=== PATIENT | male | born 1970 | race Caucasian/White ===

== ENCOUNTER 2022-03-31 22:09 | Inpatient (IN) | payer SELFPAY ==
[~2022-03-31] VITALS: Ht 170.2 cm; Wt 75.4 kg
--- NOTE | 2022-03-31 22:10 | NUR ---
Arrival 51 y/o white male ambulatory to ED accompanied by his mother c/o n/v x1 day with poor PO intake x 4 days pmhx DM takes metformin 500 mg BID , blood glucose 312 mg/dl, iv 18 memo started in left AC x 1 attempt, blood drawn for lab, Dr. Boyce at bedside orders recieved.
[2022-03-31] MEDS ORDERED: PHENERGAN IV STA (22:16)
[2022-03-31] MEDS ORDERED: NS 1000ML 1,000 ML STA ×2 (22:16→23:09)
[2022-03-31] MEDS ORDERED: NS 1000ML 1,000 ML ONE ×2 (22:35→23:09)
[2022-03-31] MEDS ORDERED: PHENERGAN ONE (22:36)
[2022-03-31] MEDS ORDERED: NS 25ML 25 ML IV ONE (22:36)
[2022-03-31 22:49] VITALS: BP 158/90
[2022-03-31 22:49] LABS: BASOPHIL % 0.1 % (0.0-0.2); LYMPHOCYTES # 1.05 10^3/uL1 (1.0-4.8); LYMPHOCYTES % 6.2 % (24.0-44.0); MEAN CORP HGB 28.7 pg (26-34); MONOCYTES # 0.8 10^3/uL (0.3-0.8); MONOCYTES % 4.6 % (5.0-12.0); NEUTROPHIL # 15.1 10^3/uL (1.8-7.7); NEUTROPHILS % 89.1 % (41.0-85.0); PLATELET COUNT 469 10^3/uL (150-400); RED CELL DISTRIBUTION WIDTH 12.4 % (11.5-14.5)
[2022-03-31 23:06] LABS: LYMPHOCYTE 4 % (25-36); MONOCYTE 2 % (3-9); SEGMENTED NEUTROPHILS 94 % (31-76)
[2022-03-31] MEDS ORDERED: NS 1000ML 1,000 ML IV STA (23:09)
[2022-03-31 23:17] LABS: CARBON DIOXIDE 18.5 mmol/L (20.0-32)
[2022-03-31] MEDS ORDERED: HUMULIN R 100 UNIT in NS 100ML 100 ML IV STA (23:22)
[2022-03-31] MEDS ORDERED: METF500T17 PO (23:29)
--- NOTE | 2022-03-31 23:29 | NUR ---
Med reconsiliation Pt takes meformin 500 mg BID fenofibrate unknown dose daily atorvastatin daily unknown dose. unable to reconsile meds at this time.
[2022-03-31] MEDS ORDERED: KCL 20MEQ/100ML 200 ML IV STA (23:32)
--- NOTE | 2022-03-31 23:36 | ER.PDOC ---
General Chief Complaint: Requesting Medical Care Stated Complaint: VOMITING Time seen by MD: 22:10 Source: patient Exam Limitations: no limitations History of Present Illness Initial Comments Patient is a 51-year-old male with a past medical history of diabetes who comes in with nausea and vomiting over the past 2 days. Patient states that over the bout the past week he has not been taking his metformin as he should because it was making him nauseous patient states that over the past 2 days he started having uncontrollable nausea and vomiting has not been able to keep any food down. Patient states he is not sure what makes the symptoms better or worse but he just continues to have vomiting. Patient denies any abdominal pain other than the cramping associated with vomiting. Patient states he has associated symptoms of mild constipation patient denies any fevers or any other complaints at this time. Home Meds Reported Medications Metformin Hcl (METFORMIN HCL) 500 Mg Tablet, 1 TAB PO BID for DM, #60 TAB 3 Refills 03/31/22 Vital Signs First Vital Signs Date Time Temp Pulse Resp B/P (MAP) Pulse Ox O2 Delivery O2 Flow Rate FiO2 03/31/22 22:49 97.9 105 24 03/31/22 22:49 97 03/31/22 22:49 158/90 (112) Room Air* 0 21 Last Vital Signs Date Time Temp Pulse Resp B/P (MAP) Pulse Ox O2 Delivery O2 Flow Rate FiO2 03/31/22 22:49 97.9 105 24 158/90 (112) 97 Room Air* 0 21 Past Medical History Medical History: diabetes, high cholesterol Surgical History: no surgical history Family History Significant Family History: no pertinent family hx Social History Smoking: non-smoker Alcohol Use: occassionally Drug Use: marijuana Reviewed Nursing Reviewed: Vital Signs, Abn. Noted, Nursing Assessment Constitutional: denies no symptoms reported, denies see HPI, denies chills, denies diaphoresis, denies fever, denies malaise, denies weakness, denies other EENTM: denies no symptoms reported, denies see HPI, denies eye pain, denies blurred vision, denies tearing, denies double vision, denies ear pain, denies ear discharge, denies nose pain, denies nose congestion, denies throat pain, denies throat swelling, denies mouth pain, denies mouth swelling, denies other Respiratory: denies no symptoms reported, denies see HPI, denies cough, denies orthopnea, denies shortness of breath, denies SOB with exertion, denies SOB at rest, denies stridor, denies wheezing, denies other Cardiovascular: denies no symptoms reported, denies see HPI, denies chest pain, denies edema, denies irregular heart rate, denies lightheadedness, denies palpitations, denies syncope, denies other Gastrointestinal: denies abdomen distended, denies abdominal pain; constipated; denies diarrhea; nausea, poor appetite, poor fluid intake Genitourinary: denies no symptoms reported, denies see HPI, denies burning, denies dysuria, denies discharge, denies frequency, denies flank pain, denies hematuria, denies incontinence, denies pain, denies urgency, denies other Musculoskeletal: denies no symptoms reported, denies see HPI, denies back pain, denies gout, denies joint pain, denies joint swelling, denies muscle pain, denies muscle stiffness, denies neck pain, denies other Skin: denies no symptoms reported, denies see HPI, denies change in color, denies change in hair/nails, denies dryness, denies lesions, denies lumps, denies rash, denies other Psychiatric/Neurological: denies no symptoms reported, denies see HPI, denies anxiety, denies depressed, denies emotional problems, denies headache, denies numbness, denies paresthesia, denies pre-existing deficit, denies seizure, denies tingling, denies tremors, denies weakness, denies other Endocrine: denies no symptoms reported, denies see HPI, denies excessive sweating, denies flushing, denies intolerance to cold, denies intolerance to heat, denies increased hunger, denies increased thrist, denies increased urine, denies unexplained weight gain, denies unexplaned weight loss, denies other Hematologic/Lymphatic: denies no symptoms reported, denies see HPI, denies anemia, denies blood clots, denies easy bleeding, denies easy bruising, denies swollen glands, denies other Physical Exam General Appearance: Anxious HEENT: PERRL/EOMI, Normal ENT Inspection, TMs Normal, Pharynx Normal Neck: Non-Tender, Full Range of Motion, Supple, Normal Inspection Respiratory: chest non-tender, lungs clear, normal breath sounds, no respiratory distress, no accessory muscle use Cardiovascular: Normal Peripheral Pulses, No Edema, No Gallop, No JVD, No Murmur, Tachycardia Gastrointestinal: Non Tender, Hyperactive bowel sounds, Soft Back: Normal Inspection, No CVA Tenderness, No Vertebral Tenderness Extremities: Normal Range of Motion, Non-Tender, Normal Inspection, No Pedal Edema, No Calf Tenderness, Normal Capillary Refill, Pelvis Stable Neurologic/Psychiatric: loop tender II-XII NML as Tested, No Motor/Sensory Deficits, Alert, Normal Mood/Affect, Oriented x 3 Skin: Normal Color, Warm/Dry Lymphatic: No Adenopathy Results/Orders Results/Orders Orders - ERNA PINA MD Cbc With Auto Diff (03/31/22 22:16) Comprehensive Metabolic Panel (03/31/22 22:16) Lipase (03/31/22 22:16) Saline Lock (03/31/22 22:16) 0.9 % Sodium Chloride (Ns 1000ml) (03/31/22 22:16) Promethazine Hcl (Phenergan) (03/31/22 22:16) 0.9 % Sodium Chloride (Ns 1000ml) (03/31/22 22:35) Promethazine Hcl (Phenergan) (03/31/22 22:36) 0.9 % Sodium Chloride (Ns 25ml) (03/31/22 22:36) 0.9 % Sodium Chloride (Ns 1000ml) (03/31/22 23:09) 0.9 % Sodium Chloride (Ns 1000ml) (03/31/22 23:09) Insulin Regular, Human (Humulin R) (03/31/22 23:22) Acetone,Serum (Ml) (03/31/22 23:27) Urinalysis (03/31/22 23:27) Venous Blood Gas (03/31/22 23:27) Vital Signs Date Time Temp Pulse Resp B/P (MAP) Pulse Ox O2 Delivery O2 Flow Rate FiO2 03/31/22 22:49 97.9 105 24 158/90 (112) 97 Room Air* 0 21 03/31/22 22:49 97.9 105 24 97 03/31/22 22:49 97.9 105 24 Administered Medications Medications (Trade) Dose Ordered Sig/Yogesh Route PRN Reason Start Time Stop Time Status Last Admin Dose Admin Promethazine HCl (Phenergan) 25 mg OT STAT IV 03/31/22 22:16 03/31/22 22:18 DC 03/31/22 22:43 25 MG Sodium Chloride 1,000 ml @ 0 mls/hr Q0M STAT IV 03/31/22 22:16 03/31/22 22:18 DC 03/31/22 22:42 1,000 MLS/HR Sodium Chloride 1,000 ml @ 0 mls/hr Q0M STAT IV 03/31/22 23:09 03/31/22 23:10 UNV 03/31/22 23:25 1,000 MLS/HR Laboratory Tests Test 03/31/22 22:33 03/31/22 22:40 03/31/22 22:54 POC Glucose 312 (70 - 110) H White Blood Count 16.9 10^3/uL (4.5-11.0) H Red Blood Count 6.21 10^6/uL (4.50-5.90) H Hemoglobin 17.8 g/dL (13.9-16.3) H Hematocrit 52.1 % (37.0-53.0) Mean Corpuscular Volume 83.9 fL (78-100) Mean Corpuscular Hemoglobin 28.7 pg (26-34) Mean Corpuscular Hemoglobin Concent 34.2 g/dL (33-36.5) Red Cell Distribution Width 12.4 % (11.5-14.5) Platelet Count 469 10^3/uL (150-400) H Mean Platelet Volume 10.0 fL (7.8-11.0) Neutrophils (%) (Auto) 89.1 % (41.0-85.0) H Lymphocytes (%) (Auto) 6.2 % (24.0-44.0) *L Monocytes (%) (Auto) 4.6 % (5.0-12.0) L Neutrophils # (Auto) 15.1 10^3/uL (1.8-7.7) H Lymphocytes # (Auto) 1.05 10^3/uL1 (1.0-4.8) Monocytes # (Auto) 0.8 10^3/uL (0.3-0.8) Absolute Immature Granulocyte (auto 0.13 10^3 u/L (0-2) Absolute Eosinophils (auto) 0.0 10^3/uL (0.0-0.2) Immature Granulocytes % 0.80 % (0.00-0.50) H Eosinophils % 0.0 % (0.0-5.0) Basophils % 0.1 % (0.0-0.2) Basophils # 0.0 10^3/uL (0.0-0.1) Sodium Level 138 mmol/L (132-145) Potassium Level 4.0 mmol/L (3.6-5.2) Chloride Level 92.0 mmol/L (96-109) L Carbon Dioxide Level 18.5 mmol/L (20.0-32) L Anion Gap 31.5 Blood Urea Nitrogen 23 mg/dL (7-18) H Creatinine 1.44 mg/dL (0.59-1.40) H Estimated GFR () 63.1 (>/=60) Est GFR (CKD-EPI)(Non-Afr [place] Citizen) 52.1 (>/=60) BUN/Creatinine Ratio 15.0 Glucose Level 378 mg/dL (70-110) H Calcium Level 10.5 mg/dL (8.4-10.5) Total Bilirubin 1.7 mg/dL (0.2-1.0) H Aspartate Amino Transferase (AST) 8 U/L (0-35) Alanine Aminotransferase (ALT) 28 U/L (12-78) Alkaline Phosphatase 109 U/L (50-136) Total Protein 9.4 g/dL (6.4-8.2) H Albumin 5.2 g/dL (3.4-5.0) H Globulin 4.2 Albumin/Globulin Ratio 1.238 Lipase 34 U/L (114-286) L Segmented Neutrophils 94 % (31-76) H Lymphocytes 4 % (25-36) L Monocytes 2 % (3-9) L Platelet Estimate SLIGHTLY INCREASED Platelet Morphology NORMAL Progress Progress Patient here with nausea vomiting and not been taking his metformin appropriately. We will give him symptomatic control we will give him fluids. Will work patient up for electrolyte disturbances including DKA as well. We will continue to monitor patient. 2338reassessmentpatient has not vomited since he got the Phenergan. Was able to discuss the patient's case with Dr. Whitehead at 2335 who admitted the patient I called initially [phone] and left a message with Dr. Whitehead but he called back at [phone]. Patient was ultimately found to have be in DKA potassium supplementation was ordered as well as an insulin drip. Patient's extra labs were sent off as well. At this time patient remains tachycardic but otherwise hemodynamically stable will be admitted to the ICU under Dr. Whitehead. ER DEPART Departure Time of Disposition: 23:39 Disposition: 09 ADMITTED INPATIENT Impression: Primary Impression: DKA (diabetic ketoacidosis) Additional Impressions: Dehydration MARIA ELENA (acute kidney injury) Condition: Stable Referrals: PCP,UNKNOWN (PCP) PRIMARY CARE PROVIDER Duration or Time Spent with Pa: 85 Critical Care Note Total Time (mins): 45 Comments Patient found to be in diabetic ketoacidosis without Immediate intervention coul d have been detrimental to patient's life. Patient will be admitted to the ICU for this. This is separate from any other billable procedure. Problem Qualifiers Primary Impression: DKA (diabetic ketoacidosis) Diabetes mellitus type: other specified (including IVA) Diabetes mellitus complication detail: without coma Qualified Codes: E13.10 - Other specified diabetes mellitus with ketoacidosis without coma ERNA PINA MD Mar 31, 2022 23:36
[2022-03-31] MEDS ORDERED: NS 100ML 100 ML IV ONE (23:39)
[2022-03-31] MEDS ORDERED: HUMULIN R ONE (23:40)
[2022-04-01] VITALS (59 sets, daily range): BP systolic 114–158; BP diastolic 54–92
[2022-04-01] MEDS ORDERED: ZOFRAN IV PRN
[2022-04-01] MEDS ORDERED: MORPHINE SULFATE IV PRN
--- NOTE | 2022-04-01 00:02 | NUR ---
IV site #2 18 memo to right FA x 1 attempt aseptic tech, good blood return j loop applied, flushed with 10 ml NS patent no s/s if infiltration, patent.
[2022-04-01] MEDS ORDERED: D5W-1/2 NS/KCL 20MEQ 1,000 ML ONE (00:04)
--- NOTE | 2022-04-01 00:16 | NUR ---
Admit brarafaet applied, pt transfered to ICU bed 1 introduced to ICU staff, pt transfered self to bed, report to [facility]. discussed with pt mother to obtain her sons medication doses she states he only has his pill digital media planner no bottles. she will try to reach his friend in [place] to obtain dosages from his home.
--- NOTE | 2022-04-01 00:26 | NUR ---
ARRIVAL NOTE PATIENT CAME UP TO THE UNIT ALONG WITH 1 ER NURSE, ROSA VIA STRETCHER. SATURATION MAINTAINED AT ROOM AIR. PATIENT TRANSFERRED TO THE ICU BED AND HOOKED UP TO BEDSIDE MONITOR. PATIENT HAS INSULIN DRIP AND ANOTHER FLUID JUST STARTED PER EMAR. PATIENT HAS 2 18G IV CANNULA. PATIENT IN ON SELF VOID AND CLEAR LIQUID DIET.
[2022-04-01] MEDS: D5W-1/2NS 1000ML 1,000 ML IV SCH ×3 (00:35→08:00)
--- NOTE | 2022-04-01 00:51 | NUR ---
DR MELENDEZ NOTIFIED OF PT ARRIVAL TO ICU. NOTIFIED OF PT IVF INFUSING OF INSULIN GTT @ 5U/HR AND D5 1/2NS WITH 20KCL INFUSING @ 250ML/HR. BLOOD SUGAR ASSESSED AT 0031 IS 265MG/DL. TELEPHONE ORDERS GIVEN FOLLOWS: 1 - KEEP INSULIN GTT INFUSING @ 5U/HR AND IVF FLUIDS PER EMAR 2 - NOTIFY DR MELENDEZ FOR BLOOD SUGAR LESS THAN 100MG/DL OR GREATER THAN 350MG/DL. TELEPHONE ORDERS RBAV.
--- NOTE | 2022-04-01 01:45 | PRM.CONS ---
Consultation Reason for Consult: Reason for Consultation: Admission for DKA History of Present Illness History of Patient Comments This is a telemedicine visit Patient's current location: [place], [place] My current location: [place], [place] Vitals & Lab Laboratory Tests Test 03/31/22 22:33 03/31/22 22:40 03/31/22 22:54 03/31/22 23:40 Bedside Glucose 312 White Blood Count 16.9 10^3/uL Red Blood Count 6.21 10^6/uL Hemoglobin 17.8 g/dL Hematocrit 52.1 % Mean Corpuscular Volume 83.9 fL Mean Corpuscular Hemoglobin 28.7 pg Mean Corpuscular Hemoglobin Concent 34.2 g/dL Red Cell Distribution Width 12.4 % Platelet Count 469 10^3/uL Mean Platelet Volume 10.0 fL Neutrophils (%) (Auto) 89.1 % Lymphocytes (%) (Auto) 6.2 % Monocytes (%) (Auto) 4.6 % Neutrophils # (Auto) 15.1 10^3/uL Lymphocytes # (Auto) 1.05 10^3/uL1 Monocytes # (Auto) 0.8 10^3/uL Absolute Immature Granulocyte (auto 0.13 10^3 u/L Absolute Eosinophils (auto) 0.0 10^3/uL Immature Granulocytes % 0.80 % Eosinophils % 0.0 % Basophils % 0.1 % Basophils # 0.0 10^3/uL Sodium Level 138 mmol/L Potassium Level 4.0 mmol/L Chloride Level 92.0 mmol/L Carbon Dioxide Level 18.5 mmol/L Anion Gap 31.5 Blood Urea Nitrogen 23 mg/dL Creatinine 1.44 mg/dL Estimated GFR () 63.1 Est GFR (CKD-EPI)(Non-Afr [place]) 52.1 BUN/Creatinine Ratio 15.0 Glucose Level 378 mg/dL Calcium Level 10.5 mg/dL Phosphorus Level 5.8 mg/dL Magnesium Level 1.9 mg/dL Total Bilirubin 1.7 mg/dL Aspartate Amino Transf (AST/SGOT) 8 U/L Alanine Aminotransferase (ALT/SGPT) 28 U/L Alkaline Phosphatase 109 U/L Troponin I High Sensitivity 6 ng/L Total Protein 9.4 g/dL Albumin 5.2 g/dL Globulin 4.2 Albumin/Globulin Ratio 1.238 Lipase 34 U/L Acetone, Semi-Quantitative SMALL Segmented Neutrophils 94 % Lymphocytes 4 % Monocytes 2 % Platelet Estimate SLIGHTLY INCREASED Platelet Morphology NORMAL Bedside Blood Gas Site (LAB) VBG O2 Saturation 23.2 Yao Test N/A Venous Blood pH 7.255 Venous Blood pCO2 at Patient Temp 37.9 MMHG Bedside Venous pO2 21.1 MMHG Venous Blood Base Excess -9.9 Venous Blood Temperature 37.0 Blood Gas Total Hemoglobin 15.1 % Deoxyhemoglobin 75.3 % Carboxyhemoglobin 0.7 % Methemoglobin 1.2 % Total Oxygen Concentration 4.9 % FiO2 20.8 % Total Carbon Dioxide 17.6 mmol/L Bicarbonate 16.4 mmol/L Test 04/01/22 00:33 Bedside Glucose 265 Current Medications Medications (Trade) Dose Ordered Sig/Yogesh Route PRN Reason Start Time Stop Time Status Last Admin Dose Admin Sodium Chloride 1,000 ml @ 0 mls/hr Q0M STAT IV 03/31/22 22:16 03/31/22 22:18 DC 03/31/22 22:42 Promethazine HCl (Phenergan) 25 mg OT STAT IV 03/31/22 22:16 03/31/22 22:18 DC 03/31/22 22:43 Sodium Chloride 1,000 ml @ ud STK-MED ONCE .ROUTE 03/31/22 22:35 03/31/22 22:35 DC Promethazine HCl (Phenergan) 25 mg STK-MED ONCE .ROUTE 03/31/22 22:36 03/31/22 22:36 DC Sodium Chloride 25 ml @ ud STK-MED ONCE IV 03/31/22 22:36 03/31/22 22:37 DC Sodium Chloride 1,000 ml @ ud STK-MED ONCE .ROUTE 03/31/22 23:09 03/31/22 23:09 DC Sodium Chloride 1,000 ml @ 0 mls/hr Q0M STAT IV 03/31/22 23:09 04/01/22 00:23 DC 03/31/22 23:25 Insulin Human Regular 100 unit/ Sodium Chloride 100 ml @ 5 mls/hr STAT IV 03/31/22 23:22 04/01/22 19:21 03/31/22 23:55 Potassium Chloride 200 ml @ 50 mls/hr OT STAT IV 03/31/22 23:32 04/01/22 00:04 DC Sodium Chloride 100 ml @ ud STK-MED ONCE IV 03/31/22 23:39 03/31/22 23:39 DC Insulin Human Regular (Humulin R) 10 unit STK-MED ONCE .ROUTE 03/31/22 23:40 03/31/22 23:40 DC Dextrose (Dextrose 50%-Water Syringe) 25 ml STAT PRN IV HYPOGLYCEMIA 04/01/22 00:00 05/01/22 00:00 Ondansetron HCl (Zofran) 4 mg Q4H PRN IV NAUSEA / VOMITING 04/01/22 00:00 05/01/22 00:00 Morphine Sulfate (Morphine Sulfate) 2 mg Q4H PRN IV PAIN 7 - 10 04/01/22 00:00 05/01/22 00:00 Potassium Chloride/Dextrose/ Sod Cl 1,000 ml @ ud STK-MED ONCE .ROUTE 04/01/22 00:04 04/01/22 00:04 DC Sodium Chloride 1,000 ml @ 0 mls/hr Q0M STAT IV 03/31/22 23:09 04/01/22 00:24 DC Vital Sign - Last 24 Hours 03/31/22 03/31/22 03/31/22 04/01/22 22:49 22:49 22:49 00:10 Temp 97.9 97.9 97.9 97.9 Pulse 105 105 105 92 Resp 24 24 24 20 B/P (MAP) 158/90 (112) 139/81 (100) Pulse Ox 97 97 97 O2 Delivery Room Air* Room Air* O2 Flow Rate 0 0 FiO2 21 21 04/01/22 04/01/22 00:45 01:00 Temp 99.0 Pulse 98 Resp 18 B/P (MAP) 143/85 (104) Pulse Ox 95 O2 Delivery Room Air* Room Air O2 Flow Rate 0 0.00 FiO2 21 Intake and Output 04/01/22 07:00 Intake Total 2200 ml Output Total 400 ml Balance 1800 ml VTE VTE Risk Total Score: 1 VTE Risk Score VTE Risk: Score 0-1 = Low Risk (Aggressive mobilization; early ambulation; no VTE prophylaxis required) Score 2: Moderate Risk (Intermittent/Pneumatic Compression Device OR Lovenox/Heparin/Coumadin) Score 3-4: High Risk (Intermittent/Pneumatic Compression Device AND Lovenox/Heparin/Coumadin) Score > or =5: Highest Risk (Intermittent/Pneumatic Compression Device AND Lovenox/Heparin/Coumadin) VTE VTE Present on Admission: No Currently receiving anticoagul: No VTE Risk Total Score: 1 VTE VTE Risk Total Score: 1 History of Present Illness History of Present Illness This is a 51-year-old gentleman with a known history of type 2 diabetes only taking metformin at home who is been off of all of his medications for about the last 2 to 3 weeks who presented to the emergency room with complaints of nausea and vomiting. He has been intolerant of any sort of oral intake for about 24 to 48 hours. He denies vomiting any blood. He denies any diarrhea or constipation. He admits to a little bit of lightheadedness and dizziness that progressively worsened throughout the day yesterday he decided to come to the emergency room for evaluation. Upon arrival he was found to have evidence of some mild diabetic ketoacidosis and I was contacted for admission after he had received 2 L of IV fluid administration at the time of my evaluation, he does feel a lot better. His nausea has dramatically improved as well. He does feel little bit hungry now. Past Surgical History: No pertinent hx Past Social History Smoke: No Alcohol: none Drugs: None Constitutional: see HPI EENTM: no symptoms reported Respiratory: no symptoms reported Cardiovascular: no symptoms reported Gastrointestinal: see HPI Genitourinary: frequency Musculoskeletal: no symptoms reported Skin: no symptoms reported Psychiatric/Neurological: no symptoms reported Endocrine: no symptoms reported Hematologic/Lymphatic: no symptoms reported Physical Exam General Appearance: No Apparent Distress HEENT: PERRL/EOMI, Other (Membranes are dry) Neck: Non-Tender, Full Range of Motion, Supple, Normal Inspection Respiratory: chest non-tender, lungs clear, normal breath sounds, no respiratory distress, no accessory muscle use Cardiovascular: Regular Rate, Rhythm, No Edema, No JVD, No Murmur Gastrointestinal: Normal Bowel Sounds Extremities: Normal Range of Motion Skin: Normal Color, Warm/Dry Assessment/Plan Assessment/Plan Problems: (1) DKA (diabetic ketoacidosis) Status: Acute Assessment & Plan: Will admit to the ICU. Placing on an insulin gtt. Obtain BMP q4h, Mag and Phos q8H. replace electrolytes as needed. Will need aggressive IV fluid replacement with D5 NS with 20 of K. Obtain A1C in AM. DM education will be needed throughout. For now will make NPO as well. Place on telemetry. Anticipate need for IV insulin for 12 to 24-hour. ICD Code: E11.10 - Type 2 diabetes mellitus with ketoacidosis without coma SNOMED: 17077650, 062658685 (2) MARIA ELENA (acute kidney injury) Status: Acute Assessment & Plan: Most likely a prerenal azotemia and dehydration Monitor strict ins and outs, daily weights, update labs in AM. Baseline creatinine 1.0 Avoid all nephrotoxins including but not limited to nonsteroidal anti- inflammatory drugs, iodine based IV contrast, aminoglycosides. Avoid phosphate containing solutions both IV and rectally. Keep BP 110-130/60-80. ICD Code: N17.9 - Acute kidney failure, unspecified SNOMED: 05169877, 4910576 (3) Dehydration Status: Acute Assessment & Plan: Related to the above IV fluid hydration ICD Code: E86.0 - Dehydration SNOMED: 66194623, 4903242 (4) Abnormal LFTs Status: Acute Assessment & Plan: Unclear the exact etiology Patient without significant abdominal pain but does have some nausea and vomiting This does raise concern for possibility of some gallbladder or liver issues Will obtain ultrasound of the right upper quadrant in the morning Trend LFTs for now Further intervention based on results of the studies ICD Code: R79.89 - Other specified abnormal findings of blood chemistry SNOMED: 152439551 Problem Qualifiers (1) DKA (diabetic ketoacidosis): Diabetes mellitus type: other specified (including IVA) Diabetes mellitus complication detail: without coma Qualified Codes: E13.10 - Other specified diabetes mellitus with ketoacidosis without coma FRANCISCA MELENDEZ MD Apr 01, 2022 01:45
[2022-04-01 02:10] LABS: CARBON DIOXIDE 23.9 mmol/L (20.0-32)
--- NOTE | 2022-04-01 06:08 | PCM.EKG ---
[facility] Test Date: 2022-04-01 Test Time: 05:49:19 Pat Name: PLACIDO ROA Department: Room: ICU1 Gender: M E M Assembler: : 1970 Requested By: FRANCISCA MELENDEZ Order Number: [id number] Reading MD: Measurements Intervals [place] Rate: 91 P: 54 SC: 154 QRS: -2 QRSD: 92 T: 35 QT: 366 QTc: 451 Interpretive Statements Sinus rhythm Probable left atrial enlargement Baseline wander in lead(s) I,III,aVL No previous ECG available for comparison Please click the below link to view image of tracing.
[2022-04-01 07:07] LABS: CARBON DIOXIDE 24.8 mmol/L (20.0-32)
[2022-04-01] MEDS ORDERED: D5NS 1000ML/KCL 20MEQ 1,000 ML IV SCH (08:30)
[2022-04-01] MEDS ORDERED: D5NS 1000ML/KCL 20MEQ 1,000 ML ONE (08:33)
[2022-04-01 10:40] LABS: CARBON DIOXIDE 25.3 mmol/L (20.0-32)
--- NOTE | 2022-04-01 10:43 | PCM.HP ---
HISTORY AND PHYSICAL Date of Arrival on Unit: Mar 31, 2022 Chief Complaint nausea and vomiting HPI 51 year old male with DMII but has not taken his metformin for 3 weeks presented to the ED overnight for nausea and vomiting. He was found to be in mild diabetic ketoacidosis in the ED. He received 2L IVF and admitted to ICU. Tele-Preform Plate Maker note below: History of Present Illness This is a 51-year-old gentleman with a known history of type 2 diabetes only taking metformin at home who is been off of all of his medications for about the last 2 to 3 weeks who presented to the emergency room with complaints of nausea and vomiting. He has been intolerant of any sort of oral intake for about 24 to 48 hours. He denies vomiting any blood. He denies any diarrhea or constipation. He admits to a little bit of lightheadedness and dizziness that progressively worsened throughout the day yesterday he decided to come to the em ergency room for evaluation. Upon arrival he was found to have evidence of some mild diabetic ketoacidosis and I was contacted for admission after he had received 2 L of IV fluid administration at the time of my evaluation, he does feel a lot better. His nausea has dramatically improved as well. He does feel little bit hungry now. Past Surgical History: No pertinent hx Pt seen this morning in the ICU. IVF and insulin still running at this time. Glucose levels have been in the 180-250 range this morning and gap was 14. He reported to feeling much better at this time without nausea. He denied fever, chills, sore throat, dry mouth, abd pain, diarrhea, urinary sx, rash, dizziness, headaches, changes in vision. No new complaints. He is from [place], [place] and his provider is from there as well. He is only taking Metformin 500mg BID. He also takes a statin and fenofibrate for HLD. He is unaware of his most recent A1c. No acute events overnight per nursing staff. Denied any previous surgeries This is his first DKA episode. Drinks EtOH socially, denied smoking cigarettes or using tobacco, occasional THC use NKDA FULL CODE Allergies Allergies Coded Allergies No Known Allergies ([id number]/15/22) Scheduled Metformin Hcl (Metformin Hcl), 1 TAB PO BID, (Reported) Other Pt history Problems Medical Problems: (1) MARIA ELENA (acute kidney injury) Status: Acute ICD Codes: N17.9 - Acute kidney failure, unspecified SNOMED: 21355435, 5554834 (2) Dehydration Status: Acute ICD Codes: E86.0 - Dehydration SNOMED: 11936889, 3866342 ROS 12 point ROS negative other than stated in HPI VITALS Vital Signs Date Time Temp Pulse Resp B/P (MAP) Pulse Ox O2 Delivery O2 Flow Rate FiO2 04/01/22 10:15 78 124/85 (98) 96 Room Air* 0 21 04/01/22 10:00 27 04/01/22 04:00 97.6 EXAM General Appearance: NAD, resting comfortably in bed HEENT: PERRLA/EOMI, Normal ENT Inspection, Moist mucous membranes Neck: Non-Tender, Full Range of Motion, Supple, Respiratory: chest non-tender, lungs clear, normal breath sounds, no respiratory distress, no accessory muscle use Cardiovascular: RRR, Normal Peripheral Pulses, No Edema, No Gallop, No JVD, No Murmur, Gastrointestinal: Non Tender, Hyperactive bowel sounds, Soft Back: Normal Inspection, No CVA Tenderness, No Vertebral Tenderness Extremities: Normal Range of Motion, Non-Tender, Normal Inspection, No Pedal E carmel, No Calf Tenderness 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, No Motor/Sensory Deficits, Alert, Normal Mood/Affect, Oriented x 3 Skin: Normal Color, Warm/Dry Lymphatic: No Adenopathy LAB/SAE/BBK/PATH Laboratory Tests Test 03/31/22 22:33 03/31/22 22:40 03/31/22 22:54 03/31/22 23:40 Bedside Glucose 312 (70 - 110) White Blood Count 16.9 10^3/uL (4.5-11.0) Red Blood Count 6.21 10^6/uL (4.50-5.90) Hemoglobin 17.8 g/dL (13.9-16.3) Hematocrit 52.1 % (37.0-53.0) Mean Corpuscular Volume 83.9 fL (78-100) Mean Corpuscular Hemoglobin 28.7 pg (26-34) Mean Corpuscular Hemoglobin Concent 34.2 g/dL (33-36.5) Red Cell Distribution Width 12.4 % (11.5-14.5) Platelet Count 469 10^3/uL (150-400) Mean Platelet Volume 10.0 fL (7.8-11.0) Neutrophils (%) (Auto) 89.1 % (41.0-85.0) Lymphocytes (%) (Auto) 6.2 % (24.0-44.0) Monocytes (%) (Auto) 4.6 % (5.0-12.0) Neutrophils # (Auto) 15.1 10^3/uL (1.8-7.7) Lymphocytes # (Auto) 1.05 10^3/uL1 (1.0-4.8) Monocytes # (Auto) 0.8 10^3/uL (0.3-0.8) Absolute Immature Granulocyte (auto 0.13 10^3 u/L (0-2) Absolute Eosinophils (auto) 0.0 10^3/uL (0.0-0.2) Immature Granulocytes % 0.80 % (0.00-0.50) Eosinophils % 0.0 % (0.0-5.0) Basophils % 0.1 % (0.0-0.2) Basophils # 0.0 10^3/uL (0.0-0.1) Sodium Level 138 mmol/L (132-145) Potassium Level 4.0 mmol/L (3.6-5.2) Chloride Level 92.0 mmol/L (96-109) Carbon Dioxide Level 18.5 mmol/L (20.0-32) Anion Gap 31.5 Blood Urea Nitrogen 23 mg/dL (7-18) Creatinine 1.44 mg/dL (0.59-1.40) Estimated GFR () 63.1 (>/=60) Est GFR (CKD-EPI)(Non-Afr Nigerien) 52.1 (>/=60) BUN/Creatinine Ratio 15.0 Glucose Level 378 mg/dL (70-110) Calcium Level 10.5 mg/dL (8.4-10.5) Phosphorus Level 5.8 mg/dL (2.5-4.9) Magnesium Level 1.9 mg/dL (1.8-2.4) Total Bilirubin 1.7 mg/dL (0.2-1.0) Aspartate Amino Transf (AST/SGOT) 8 U/L (0-35) Alanine Aminotransferase (ALT/SGPT) 28 U/L (12-78) Alkaline Phosphatase 109 U/L (50-136) Troponin I High Sensitivity 6 ng/L (0-75) Total Protein 9.4 g/dL (6.4-8.2) Albumin 5.2 g/dL (3.4-5.0) Globulin 4.2 Albumin/Globulin Ratio 1.238 Lipase 34 U/L (114-286) Acetone, Semi-Quantitative SMALL Segmented Neutrophils 94 % (31-76) Lymphocytes 4 % (25-36) Monocytes 2 % (3-9) Platelet Estimate SLIGHTLY INCREASED Platelet Morphology NORMAL Bedside Blood Gas Site (LAB) VBG O2 Saturation 23.2 (70-75) Yao Test N/A Venous Blood pH 7.255 (7.32-7.43) Venous Blood pCO2 at Patient Temp 37.9 MMHG (41-51) Bedside Venous pO2 21.1 MMHG (30-50) Venous Blood Base Excess -9.9 Venous Blood Temperature 37.0 Blood Gas Total Hemoglobin 15.1 % (12.0-16.0) Deoxyhemoglobin 75.3 % (0.0-5.0) Carboxyhemoglobin 0.7 % (0.0-3.9) Methemoglobin 1.2 % (0.00-5.0) Total Oxygen Concentration 4.9 % (13.5-17.5) FiO2 20.8 % (20-101) Total Carbon Dioxide 17.6 mmol/L (23-27) Bicarbonate 16.4 mmol/L (24-28) Test 04/01/22 00:33 04/01/22 01:31 04/01/22 02:00 04/01/22 02:33 Bedside Glucose 265 (70 - 110) 263 (70 - 110) 271 (70 - 110) Sodium Level 140 mmol/L (132-145) Potassium Level 4.3 mmol/L (3.6-5.2) Chloride Level 102.0 mmol/L (96-109) Carbon Dioxide Level 23.9 mmol/L (20.0-32) Glucose Level 282 mg/dL (70-110) Blood Urea Nitrogen 20 mg/dL (7-18) Creatinine 1.18 mg/dL (0.59-1.40) Calcium Level 9.4 mg/dL (8.4-10.5) Anion Gap 18.4 Estimated GFR () 79.4 (>/=60) Est GFR (CKD-EPI)(Non-Afr Nigerien) 65.6 (>/=60) BUN/Creatinine Ratio 16.0 Magnesium Level 1.9 mg/dL (1.8-2.4) Troponin I High Sensitivity 7 ng/L (0-75) Test 04/01/22 03:38 04/01/22 04:43 04/01/22 05:34 04/01/22 06:18 Bedside Glucose 215 (70 - 110) 258 (70 - 110) 251 (70 - 110) Sodium Level 140 mmol/L (132-145) Potassium Level 3.7 mmol/L (3.6-5.2) Chloride Level 104.0 mmol/L (96-109) Carbon Dioxide Level 24.8 mmol/L (20.0-32) Anion Gap 14.9 Blood Urea Nitrogen 17 mg/dL (7-18) Creatinine 1.07 mg/dL (0.59-1.40) Estimated GFR () 88.9 (>/=60) Est GFR (CKD-EPI)(Non-Afr Nigerien) 73.5 (>/=60) BUN/Creatinine Ratio 15.0 Glucose Level 239 mg/dL (70-110) Hemoglobin A1c 8.0 % (0-5.7) Calcium Level 9.1 mg/dL (8.4-10.5) Total Bilirubin 1.2 mg/dL (0.2-1.0) Aspartate Amino Transf (AST/SGOT) 9 U/L (0-35) Alanine Aminotransferase (ALT/SGPT) 23 U/L (12-78) Alkaline Phosphatase 79 U/L (50-136) Total Protein 7.0 g/dL (6.4-8.2) Albumin 3.8 g/dL (3.4-5.0) Globulin 3.2 Albumin/Globulin Ratio 1.187 Triglycerides Level 81 mg/dL (20-170) Cholesterol Level 164 mg/dL (120-240) LDL Cholesterol, Calculated 97.8 VLDL Cholesterol, Calculated 16.2 HDL Cholesterol 50 mg/dL (32-96) Cholesterol Ratio (LDL/HDL) 1.9 Cholesterol/HDL Ratio 3.433380 Test 04/01/22 06:36 04/01/22 07:32 04/01/22 08:39 04/01/22 09:39 Bedside Glucose 221 (70 - 110) 195 (70 - 110) 129 (70 - 110) 136 (70 - 110) IMAGING none SUMMARY 51 year old male admitted for DKA after missing 3 weeks worth of metformin. Started on IVF and insulin drip in the ICU. ASSESSMENT/PLAN DKA - improving glucose and anion gap. Cont monitoring glucose, electrolytes. Nausea and vomiting - improved HLD - will restart fenofibrate and statin when appropriate. Once gap closes and glucose stable, will switch IVF to NS with KCl, allow to eat as tolerated, then stop insulin drip and monitor closely with IVF still running GURWINDER GODWIN MD Apr 01, 2022 10:43
[2022-04-01 12:13] LABS: CARBON DIOXIDE 25.4 mmol/L (20.0-32)
[2022-04-01] MEDS: NS 1000ML 1,000 ML IV SCH ×2 (12:30→13:24)
[2022-04-01] MEDS ORDERED: HUMULIN R SQ ONE (12:30)
[2022-04-01 13:20] LABS: BILIRUBIN,URINE NEGATIVE (NEGATIVE); UROBILINOGEN,URINE 0.2 E.U./dL (0.2)
[2022-04-01] MEDS: NS 1000ML/KCL 20MEQ 1,000 ML IV SCH ×2 (14:52→23:00)
[2022-04-01 16:20] LABS: CARBON DIOXIDE 26.8 mmol/L (20.0-32)
[2022-04-01] MEDS ORDERED: DEXTROSE 50%-WATER SYRINGE IV PRN ×2 (16:30)
--- NOTE | 2022-04-01 17:10 | NUR ---
ARRIVAL PATIENT ARRIVED ON MED-SURG UNIT TO ROOM #331. RECEIVED REPORT FROM SATHISH JOHNSON. ASSUMED CARE FOR PATIENT AT THIS TIME.
[2022-04-01] MEDS: HUMULIN R SQ SCH ×2 (17:30→21:00)
[2022-04-01 20:37] LABS: CARBON DIOXIDE 30.2 mmol/L (20.0-32)
[2022-04-02] VITALS: BP 134/91
[2022-04-02] MEDS: NS 1000ML/KCL 20MEQ 1,000 ML IV SCH (03:50)
[2022-04-02 04:00] VITALS: BP 121/76
[2022-04-02 05:00] LABS: CARBON DIOXIDE 27.8 mmol/L (20.0-32)
[2022-04-02 05:07] LABS: BASOPHIL % 0.3 % (0.0-0.2); EOSINOPHIL # 0.1 10^3/uL (0.0-0.2); EOSINOPHIL % 0.9 % (0.0-5.0); LYMPHOCYTES # 3.16 10^3/uL1 (1.0-4.8); LYMPHOCYTES % 26.6 % (24.0-44.0); MEAN CORP HGB 28.3 pg (26-34); MONOCYTES # 0.8 10^3/uL (0.3-0.8); MONOCYTES % 6.6 % (5.0-12.0); NEUTROPHIL # 7.8 10^3/uL (1.8-7.7); NEUTROPHILS % 65.6 % (41.0-85.0); PLATELET COUNT 326 10^3/uL (150-400)
[2022-04-02 07:00] VITALS: BP 120/68
[2022-04-02] MEDS: HUMULIN R SQ SCH (07:30)
--- NOTE | 2022-04-02 09:13 | PRM.DC ---
DISCHARGE SUMMARY Y Date of Admission: 04/01/2022 Date of Discharge:04/02/2022 FINAL DIAGNOSES: 1. Early onset DKA resolved 2. Type 2 diabetes mellitus 3. Nausea vomiting with dehydration resolved Please refer to the History and Physical to the point of my impression. HOSPITAL COURSE: 51-year-old gentleman who has been having to deal with a lot of things and forgot to take his home metformin for some time and started to have increasing nausea and vomiting and dehydration. He came in with a very mild case of DKA with an anion gap of 14. He was started on insulin and fluids and his anion gap and acidosis resolved quickly in the ICU where he was transitioned over to MedSurg within the first 12 hours. He is taking his p.o. intake well at this time and has had no vomiting issues. His dehydration is resolved. He tells me that he metformin use has been keeping his sugars under control and he is only had diabetes that was diagnosed for a little bit more than a year now. At this time his vital signs are stable and his blood sugars are adequate and he would like to go home and restart him back on his metformin and follow-up with his doctor. Discharge instructions: 1. Stay on a diabetic diet 2. Activity as tolerated 3. Follow-up with his PCP in [facility] in 1 week ISIDRO GRIGSBY MD Apr 02, 2022 09:13
[2022-04-02 10:38] VITALS: BP 121/76
--- NOTE | 2022-04-02 10:39 | NUR ---
DISCHARGED EDUCATION SESSION HELD WITH PT. PT DENIES PAIN AND NO APPARENT ACUTE DISTRESS NOTED. FOLLOW UP INSTRUCTIONS AND CURRENT MEDICATION EDUCATION ADDRESSED WITH PT, VERBALIZED UNDERSTANDING. PT LEFT UNIT VIA WHEELCHAIR ESCORTED BY THIS NURSE. LEFT WITH BROTHER AND DAD IN PERSONAL VEHICLE. RELINQUISHED CARE.
--- NOTE | 2022-04-02 11:00 | NUR ---
DISCHARGE PLAN - F/U WITH PCP IN [place] PER REVIEW OF PATIENT'S CHART AND CLINICAL RECORDS. PATIENT CURRENTLY LIVE IN [place]. PATIENT IND AND AMBULATES BU SELF. CM ATTEMPTED TO SEE PATIENT THIS AM AND PATIENT WAS DISCHARGED@1030 WITH DISCHARGE RECOMMENDATION OF F/U WITH PCP IN [place]. PATIENT LEFT HOSPITAL WITH DAD AND BROTHER PER NURSING ON MED SURG.
== END 2022-04-02 10:30 | disposition home or self-care (01) | DRG 638 ==
LOC: ER 22:09 → ICU 23:55 → MS 04-01 17:26
PROVIDERS: ADMIT Internal Medicine; ATTEND Pediatrics
DX: E11.10 Type 2 diabetes mellitus with ketoacidosis without coma (principal); N17.9 Acute kidney failure, unspecified; E78.00 Pure hypercholesterolemia, unspecified; E86.0 Dehydration; Z79.899 Other long term (current) drug therapy
CPT/HCPCS: 36415; 80048; 80053; 80061; 81003; 82010; 82803; 82948; 83036; 83690; 83735; 84100; 84484; 85025; 93005; 99291; G0378; J1815; J2550; J7030; J7070